=== PATIENT | male | born 1995 | race African-American/Black ===

== ENCOUNTER 2021-06-08 12:07 | Outpatient (CLI) | payer OTHER | END 2021-06-08 12:08 | disposition home or self-care (01) | LOC: CSHULT 12:07 | PROVIDERS: ATTEND Internal Medicine Nephrology | DX: Z01.818 Encounter for other preprocedural examination (principal); N18.6 End stage renal disease | CPT/HCPCS: 93970 ==

== ENCOUNTER 2021-08-06 05:30 | Observation (INO) | payer OTHER, BC ==
[2021-08-06] MEDS ORDERED: hydrALAZINE 20 MG/ML VIAL ONE (05:52)
[2021-08-06] MEDS ORDERED: Ondansetron PF 4 MG/2 ML Vial ONE (05:55)
[2021-08-06] MEDS ORDERED: Promethazine HCl 25 MG/ML VIAL ONE (05:55)
[2021-08-06 06:30] LABS: #Monocytes 0.3 10x3/uL (0.0-1.1); #Neutrophils 1.8 10x3/uL (1.5-8.4); %Eosinophils 0.4 % (0.0-6.0); %Monocytes 13.3 % (0.0-10.0); %Neutrophils 73.5 % (40.0-75.0); Mean Corpuscular HGB CONC 32.8 g/dL (32.0-36.0); Mean Corpuscular Hemoglobin 26.4 pg (27.0-33.0); Mean Corpuscular Volume 80.5 fl (81.2-95.1); Mean Platelet Volume 9.6 fl (7.4-10.4); Platelet Count 135 10x3/uL (150-450); RBC Distribution Width 13.9 % (11.5-14.5); Red Blood Cell (RBC) Count 4.16 10x6/uL (4.32-5.72); White Blood Cell (WBC) Count 2.4 10x3/uL (3.5-10.5)
[2021-08-06 06:45] LABS: ALT (SGPT) 14 U/L (8-55); AST (SGOT) 26 U/L (5-34); Albumin 4.1 g/dL (3.5-5.0); Alkaline Phosphatase 59 U/L (40-110); Anion Gap 23 mmol/L (10-20); BUN (Urea Nitrogen) 44 mg/dL (8.9-20.6); Bilirubin, Total 0.7 mg/dL (0.2-1.2); Calc. Creatinine Clearance 0 mL/min (70-130); Calcium 9.2 mg/dL (7.8-10.44); Carbon Dioxide 25 mmol/L (22-29); Chloride 94 mmol/L (98-107); Globulin 3.3 g/dL (2.4-3.5); Glucose 96 mg/dL (70-105); Potassium 3.7 mmol/L (3.5-5.1); Protein, Total 7.4 g/dL (6.0-8.3); Sodium 138 mmol/L (136-145)
[2021-08-06 07:04] LABS: CKMB 1.6 ng/mL (0-6.6)
[2021-08-06] MEDS ORDERED: Acetaminophen 325 MG TAB PO PRN (07:57)
[2021-08-06] MEDS ORDERED: Bisacodyl 5 MG TAB PO PRN (07:57)
[2021-08-06] MEDS ORDERED: Bisacodyl 10 MG SUPP PR PRN (07:57)
[2021-08-06] MEDS ORDERED: Senokot S 8.6-50 MG TAB PO PRN (07:57)
[2021-08-06] MEDS ORDERED: HYDROcodone/Acetaminophen 5/325 mg Tablet PO PRN (07:57)
[2021-08-06] MEDS ORDERED: Guaifenesin DM 100-10/5 ML UDCUP PO PRN (07:57)
[2021-08-06] MEDS ORDERED: Ondansetron PF 4 MG/2 ML Vial IVP PRN (07:57)
[2021-08-06] MEDS ORDERED: Ondansetron ODT 4 MG TAB PO PRN (07:57)
[2021-08-06] MEDS ORDERED: Benzonatate 100 MG CAP PO PRN (08:04)
[2021-08-06] MEDS ORDERED: Dexamethasone 6 MG in Sodium Chloride 0.9% 50 ML IVPB SCH (09:00)
[2021-08-06] MEDS ORDERED: Heparin 5,000 UNITS/ML VIAL SC SCH (09:00)
[2021-08-06] MEDS ORDERED: Dexamethasone 20 MG/5 ML VIAL SLOW IVP SCH (09:00)
[2021-08-06] MEDS ORDERED: Ventolin HFA Inhaler 60 PUFF INHALER INH PRN (09:08)
[2021-08-06 10:43] LABS: Troponin I 0.228 ng/mL (< 0.028)
[2021-08-06 10:58] LABS: Hep B Surf Ag Non-Reactive S/CO (NonReactive)
[2021-08-06 11:06] LABS: HBSAg Index 0.18 S/CO (0-0.99)
[2021-08-06] MEDS ORDERED: Sevelamer Carbonate 800 MG TAB PO SCH (12:00)
[2021-08-06] MEDS ORDERED: Heparin 10,000 UNITS/ 10 ML VIAL FS PRN (14:46)
[2021-08-06] MEDS ORDERED: hydrALAZINE 25 MG TAB PO SCH (15:00)
[2021-08-06 15:50] LABS: Hep B Core Total Ab Non-Reactive (NonReactive); Hep B Core Total Index 0.07 S/CO (0-0.79); Hep C IgG Ab Non-Reactive (NonReactive); Hep C Index 0.12 S/CO (0-0.79)
[2021-08-06 15:57] LABS: Hep B Surf AB Reactive (NonReactive)
[2021-08-06] MEDS ORDERED: Dexamethasone 10 MG/ML VIAL ONE (16:55)
[2021-08-06] MEDS ORDERED: hydrALAZINE 25 MG TAB ONE (16:55)
[2021-08-06 17:06] LABS: Troponin I 0.244 ng/mL (< 0.028)
[2021-08-06 17:07] VITALS: BP 157/95
[2021-08-07] MEDS ORDERED: Sevelamer Carbonate 800 MG TAB PO SCH (08:00)
[2021-08-07] MEDS ORDERED: NIFEdipine XL 90 MG TAB PO SCH (09:00)
[2021-08-07] MEDS ORDERED: Aspirin 81 mg Enteric Coated Tablet PO SCH (09:00)
[2021-08-07] MEDS ORDERED: Minoxidil 10 MG TAB PO SCH (09:00)
[2021-08-07] MEDS ORDERED: Cholecalciferol (Vitamin D3) 400 UNITS TAB PO SCH (09:00)
[2021-08-07] MEDS ORDERED: Ascorbic Acid 500 mg Chewable Tablet PO SCH (09:00)
[2021-08-07] MEDS ORDERED: Zinc Gluconate 50 MG TAB PO SCH (09:00)
[2021-08-13] MEDS ORDERED: cloNIDine 0.1mg/24 Hour PATCH TD SCH (09:00)
== END 2021-08-06 18:20 | disposition left against medical advice (07) ==
LOC: CSHERS 05:30 → CSHERHOLD 10:25
PROVIDERS: ADMIT Internal Medicine; ATTEND Family Medicine
DX: U07.1 COVID-19 (principal); J12.82 Pneumonia due to coronavirus disease 2019; R77.8 Other specified abnormalities of plasma proteins; I12.0 Hypertensive chronic kidney disease with stage 5 chronic kidney disease or end stage renal disease; N18.6 End stage renal disease; D63.1 Anemia in chronic kidney disease; Z99.2 Dependence on renal dialysis; R11.2 Nausea with vomiting, unspecified; Z79.899 Other long term (current) drug therapy; Z87.891 Personal history of nicotine dependence
CPT/HCPCS: 71045; 80053; 82553; 82728; 83605; 83880; 84484; 85025; 85379; 86140; 86704; 86706; 86803; 87040; 87340; 90935; 93005; G0257; G0378; J0360; J1100; J2405; J2550; J7620

== ENCOUNTER 2021-11-24 10:03 | Emergency (ER) | payer OTHER ==
[2021-11-24 10:45] LABS: #Monocytes 0.1 10x3/uL (0.0-1.1); #Neutrophils 7.7 10x3/uL (1.5-8.4); %Basophils 0.1 % (0.0-2.0); %Eosinophils 0.4 % (0.0-6.0); %Lymphocytes 3.4 % (18.0-47.0); %Neutrophils 94.9 % (40.0-75.0); Hemoglobin 10.2 g/dL (13.5-17.5); Mean Corpuscular HGB CONC 35.3 g/dL (32.0-36.0); Mean Corpuscular Hemoglobin 28.2 pg (27.0-33.0); Mean Corpuscular Volume 79.8 fl (81.2-95.1); Mean Platelet Volume 8.8 fl (7.4-10.4); Platelet Count 155 10x3/uL (150-450); RBC Distribution Width 14.8 % (11.5-14.5); Red Blood Cell (RBC) Count 3.62 10x6/uL (4.32-5.72); White Blood Cell (WBC) Count 8.1 10x3/uL (3.5-10.5)
[2021-11-24 10:58] LABS: ALT (SGPT) 32 U/L (8-55); AST (SGOT) 46 U/L (5-34); Albumin 4.7 g/dL (3.5-5.0); Alkaline Phosphatase 164 U/L (40-110); Anion Gap 19 mmol/L (10-20); BUN (Urea Nitrogen) 35 mg/dL (8.9-20.6); Bilirubin, Total 0.8 mg/dL (0.2-1.2); Calc. Creatinine Clearance 0 mL/min (70-130); Calcium 9.9 mg/dL (7.8-10.44); Carbon Dioxide 30 mmol/L (22-29); Chloride 93 mmol/L (98-107); Globulin 3.9 g/dL (2.4-3.5); Glucose 98 mg/dL (70-105); Lipase 118 U/L (8-78); Potassium 3.8 mmol/L (3.5-5.1); Protein, Total 8.6 g/dL (6.0-8.3); Sodium 138 mmol/L (136-145)
[2021-11-24 11:20] LABS: CKMB 1.9 ng/mL (0-6.6)
== END 2021-11-24 16:01 | disposition home or self-care (01) ==
LOC: CSHERS 10:03
DX: M62.838 Other muscle spasm (principal); R07.9 Chest pain, unspecified; E11.22 Type 2 diabetes mellitus with diabetic chronic kidney disease; I12.0 Hypertensive chronic kidney disease with stage 5 chronic kidney disease or end stage renal disease; N18.6 End stage renal disease; F17.210 Nicotine dependence, cigarettes, uncomplicated; Z99.2 Dependence on renal dialysis
CPT/HCPCS: 71045; 80053; 82553; 83690; 84484; 85025; 93005